=== PATIENT | female | born 1985 | race Caucasian/White ===

== ENCOUNTER 2025-02-13 02:05 | Emergency (ER) | payer OTHER, SELFPAY ==
[2025-02-13 02:07] VITALS: BP 106/60
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
[2025-02-13 03:53] LABS: Hematocrit 40.5 % (37.0-47.0); Hemoglobin 13.9 g/dL (12.0-16.0); Mean Corp Hgb Conc. 34.3 g/dL (33.0-37.0); Mean Corpuscular Volume 93.5 fL (81.0-99.0); Nucleated Red Blood Cells % 0 %; Platelet Count 168 10^3/uL (130-400); Red Cell Dist. Width 13.4 % (11.5-14.5)
[2025-02-13 04:13] LABS: ALT (SGPT) 22 U/L (0-35); AST (SGOT) 46 U/L (14-36); Albumin 3.9 g/dl (3.5-5.0); Alkaline Phosphatase 85 U/L (38-126); Blood Urea Nitrogen 4 mg/dl (7-17); Calcium 9.3 mg/dl (8.4-10.2); Carbon Dioxide 21 mmol/L (22-30); Chloride 110 mmol/L (98-107); Estimated Creatinine Clearance 124 ml/min; Glucose 80 mg/dl (70-99); HCG, Serum Qualitative Screen Negative; Potassium 4.1 mmol/L (3.5-5.1); Sodium 140 mmol/L (135-145); Total Protein 6.6 g/dl (6.3-8.2); eGFR > 60.00
--- NOTE | 2025-02-13 12:47 | ED.CRISIS ---
ED Crisis Note
ED Crisis Note
Subjective:
No new issues
Objective:
Alcohol elevated at 133
Assessment/Plan:
Patient transported the [facility]
== END 2025-02-13 12:30 ==
LOC: EMR 02:05
PROVIDERS: EMERGENCY PHYSICIAN Emergency Medicine
DX: F32.9 Major depressive disorder, single episode, unspecified (principal); R45.851 Suicidal ideations; F41.9 Anxiety disorder, unspecified; Z79.01 Long term (current) use of anticoagulants; Z91.51 Personal history of suicidal behavior; Z98.84 Bariatric surgery status
CPT/HCPCS: 99285; 80053; 80306; 82077; 84703; 85025